=== PATIENT | female | born 1970 | race Caucasian/White ===

== ENCOUNTER → 2017-11-09 | Outpatient (CLI) | payer OTHER ==
[~2017-11-09] MED LIST: AMIT10TA PO; AZEL23SP NS; NORT25CA PO; TRIA0.25 PO
== END | disposition home or self-care (01) ==
LOC: STAR 15:11
PROVIDERS: ATTEND Orthopaedic Surgery
DX: Z02.9 Encounter for administrative examinations, unspecified (principal)

== ENCOUNTER 2017-11-15 07:16 | Day surgery (SDC) | payer OTHER ==
[~2017-11-15] VITALS: Ht 160 cm; Wt 118.0 kg
[~2017-11-15 07:16] MED LIST changes: -AMIT10TA PO; +BUPIVACAINE/PF-EPI 0.5% 1:200K ONE; +LIDOCAINE 1%-EPI 1:100K, 30ML ONE; -NORT25CA PO; -TRIA0.25 PO
[2017-11-15] MEDS ORDERED: LACTATED RINGERS 1,000 ML IV SCH (07:44)
[2017-11-15] MEDS ORDERED: NORT25CA PO (07:54)
[2017-11-15] MEDS ORDERED: TRIA0.25 PO (07:54)
[2017-11-15] MEDS ORDERED: AMIT10TA PO (07:54)
[2017-11-15 07:57] VITALS: BP 152/94
[2017-11-15] MEDS ORDERED: MIDAZOLAM 1 MG/ML, 2ML ONE (08:19)
[2017-11-15] MEDS ORDERED: FENTANYL PF 100 MCG/2ML ONE ×2 (08:20→09:46)
[2017-11-15 08:45] LABS: HCG UR SG 1.025 (1.003-1.030)
[2017-11-15] MEDS ORDERED: GLYCOPYRROLATE 0.2MG/1ML, 5ML ONE (08:45)
[2017-11-15] MEDS ORDERED: NEOSTIGMINE 1 MG/ML, 10ML ONE (08:45)
[2017-11-15] MEDS ORDERED: FLUTICASONE NS SCH (09:00)
[2017-11-15] MEDS ORDERED: TRIAZOLAM 0.25 MG PO SCH (09:00)
[2017-11-15] MEDS ORDERED: AZELASTINE NS SCH (09:00)
[2017-11-15] MEDS ORDERED: MEPERIDINE/PF 25MG/0.5ML IVPush PRN (09:30)
[2017-11-15] MEDS ORDERED: METOPROLOL 1 MG/ML, 5ML IV PRN (09:30)
[2017-11-15] MEDS ORDERED: ONDANSETRON 2MG/ML, 2ML IV PRN (09:30)
[2017-11-15] MEDS ORDERED: LABETALOL 5MG/ML, 20ML IV PRN (09:30)
[2017-11-15] MEDS ORDERED: FENTANYL PF 100 MCG/2ML IV PRN (09:30)
[2017-11-15] MEDS ORDERED: EPHEDRINE 50 MG/ML, 1ML IVPush PRN (09:30)
[2017-11-15] MEDS ORDERED: ALBUTEROL SULFATE 2.5 MG/3 ML NPPB PRN (09:30)
[2017-11-15] MEDS ORDERED: HYDROmorphone 1 MG/ML, 1ML IV PRN (09:30)
[2017-11-15] MEDS ORDERED: OXYcodone 5 MG/5 ML ORAL.SOL UDC PO PRN (09:30)
[2017-11-15] MEDS ORDERED: PROMETHAZINE 25 MG/ML, 1ML IV PRN (09:30)
[2017-11-15] MEDS ORDERED: hydrALAzine 20 MG/ML, 1ML IV PRN (09:30)
[2017-11-15] MEDS ORDERED: ACETAMINOPHEN 325 MG TABLET PO PRN (09:30)
[2017-11-15] MEDS ORDERED: CEFAZOLIN 1,000 MG ONE ×2 (09:45)
[2017-11-15] MEDS ORDERED: DEXAMETHASONE 4 MG/ML, 1ML ONE ×2 (09:45)
[2017-11-15] MEDS ORDERED: ONDANSETRON 2MG/ML, 2ML ONE ×2 (09:45)
[2017-11-15] MEDS ORDERED: PROPOFOL 10 MG/ML, 20ML ONE (09:45)
[2017-11-15] MEDS ORDERED: ROCURONIUM 10MG/ML,5ML ONE (09:45)
[2017-11-15] MEDS ORDERED: OXYcodone 5 MG/5 ML ORAL.SOL UDC ONE (10:47)
[2017-11-15] MEDS ORDERED: AMITRIPTYLINE HCL 10 MG PO SCH (21:00)
[2017-11-15] MEDS ORDERED: NORTRIPTYLINE 25 MG CAPSULE PO SCH (21:00)
== END 2017-11-15 12:15 | disposition home or self-care (01) ==
LOC: OUT 07:16
PROVIDERS: ATTEND Orthopaedic Surgery
DX: M75.111 Incomplete rotator cuff tear or rupture of right shoulder, not specified as traumatic (principal); M24.111 Other articular cartilage disorders, right shoulder; M66.321 Spontaneous rupture of flexor tendons, right upper arm; M19.011 Primary osteoarthritis, right shoulder; M65.811 Other synovitis and tenosynovitis, right shoulder; M75.41 Impingement syndrome of right shoulder; E66.01 Morbid (severe) obesity due to excess calories; Z88.0 Allergy status to penicillin; Z98.890 Other specified postprocedural states
CPT/HCPCS: 29823; 29824; 29826; 29827; 29999; 64415; 81025; C1713; J0690; J1100; J2250; J2405; J2704; J2710; J3010; J3490

== ENCOUNTER 2018-07-29 08:48 | Emergency (ER) | payer OTHER ==
[~2018-07-29] VITALS: Ht 160 cm; Wt 117.0 kg
[~2018-07-29 08:48] MED LIST changes: +AMIT10TA PO; -BUPIVACAINE/PF-EPI 0.5% 1:200K ONE; -LIDOCAINE 1%-EPI 1:100K, 30ML ONE; +NORT25CA78 PO; +TRIA0.25 PO
--- NOTE | 2018-07-29 09:11 | NUR ---
LEFT LOW BACK PAIN SUNDAY MORNING SUNDAY, THEN AGAIN Sunday. ADDITIONALLY FEELING CHILLS YESTERDAY. TODAY PAIN SHARP AND ALSO ABDOMINAL PAIN WITH NAUSEAU
[2018-07-29 09:53] LABS: MICROSCOPIC AUTO
[2018-07-29 09:54] LABS: CULTURE INDICATED? NO
[2018-07-29 10:00] LABS: BASOPHILS # (AUTO) 0.03 x10^3/uL (0-0.1); BASOPHILS % (AUTO) 0 % (0-1); EOSINOPHILS # (AUTO) 0.21 x10^3/uL (0-0.4); EOSINOPHILS % (AUTO) 3 % (1-7); LYMPHOCYTES # (AUTO) 1.68 x10^3/uL (1-3.4); LYMPHOCYTES % (AUTO) 22 % (22-44); MD NO; MEAN CORPUSCULAR HEMOGLOBIN 26.8 pg (27.0-34.8); MEAN CORPUSCULAR HGB CONC 31.9 g/dL (32.4-35.8); MEAN CORPUSCULAR VOLUME 84.1 fL (80-100); MEAN PLATELET VOLUME 8.7 fL (7.4-10.4); MONOCYTES # (AUTO) 0.43 x10^3/uL (0.2-0.8); MONOCYTES % (AUTO) 6 % (2-9); NEUTROPHILS # (AUTO) 5.28 x10^3/uL (1.8-6.8); NEUTROPHILS % (AUTO) 69 % (42-75); PLATELET COUNT 323 x10^3/uL (130-400); RED BLOOD COUNT 5.61 x10^6/uL (3.82-5.3)
--- NOTE | 2018-07-29 10:04 | NUR ---
PT DENIES PAIN AT THIS TIME. SITTING IN CHAIR WITH
[2018-07-29 10:31] LABS: ALBUMIN 4.1 g/dL (3.4-5.0); ANION GAP 10 mmol/L (5-15); CALCIUM 9.9 mg/dL (8.5-10.1); CHLORIDE 110 mmol/L (98-107)
[2018-07-29 10:42] LABS: ALANINE AMINOTRANSFERASE 34 U/L (12-78); ALKALINE PHOSPHATASE 74 U/L (45-117); BILIRUBIN,TOTAL 0.4 mg/dL (0.2-1.0); CREATININE 0.82 mg/dL (0.55-1.02); TOTAL PROTEIN 8.4 g/dL (6.4-8.2)
[2018-07-29 11:29] VITALS: BP 137/93
--- NOTE | 2018-07-29 11:30 | NUR ---
LYING ON LEFT SIDE IN [facility]. CONTINUES TO HAVE NO PAIN AT THIS TIME. AWAITING RE-EVAL
--- NOTE | 2018-07-29 12:16 | NUR ---
AFTER MD RE-EVAL, PT GIVEN DISCHARGE INSTRUCTIONS AND AMBULATED TO DISCHARGE DESK, STEADY GAIT
== END 2018-07-29 12:18 | disposition home or self-care (01) ==
LOC: ED 09:22
DX: N13.2 Hydronephrosis with renal and ureteral calculous obstruction (principal)
CPT/HCPCS: 36415; 74176; 80053; 81001; 85025; 99284